=== PATIENT | female | born 1990 | race Hispanic/Latino ===

== ENCOUNTER 2020-01-05 12:41 | Inpatient (IN) | payer OTHER ==
[~2020-01-05] VITALS: Ht 160 cm; Wt 99.8 kg
[2020-01-05] MEDS: LACTATED RINGERS 1000ML 1,000 ML IV PRN ×2 (13:30→16:23)
[2020-01-05 13:53] VITALS: BP 120/69
[2020-01-05 13:54] LABS: APPEARANCE,URINE CLOUDY (CLEAR); BILIRUBIN,URINE NEGATIVE (NEGATIVE); COLOR,URINE YELLOW (YELLOW); GLUCOSE, URINE (UA) NEGATIVE (NEGATIVE); KETONES,URINE NEGATIVE (NEGATIVE); LEUKOCYTE ESTERASE ,URINE SMALL (NEGATIVE); NITRATE,URINE NEGATIVE (NEGATIVE); OCCULT BLOOD,URINE SMALL (NEGATIVE); PROTEIN,URINE TRACE mg/dL (NEGATIVE); UROBILINOGEN,URINE 0.2 mg/dL (0.2-1.0)
[2020-01-05] MEDS: OXYTOCIN-LR 20 UNITS/1000 ML 1,000 ML IV SCH ×2 (14:00→22:54)
[2020-01-05] MEDS ORDERED: ROPIVACAINE 0.2% 100ML VIAL 100 ML EP SCH (14:00)
[2020-01-05] MEDS ORDERED: NALOXONE HCL 0.4 MG/1 ML ML IV PRN (14:00)
[2020-01-05] MEDS ORDERED: EPHEDRINE SULFATE 50 MG/ML AMPULE IVP PRN (14:00)
[2020-01-05] MEDS ORDERED: MEPERIDINE-PF 50 MG/ML SYG IVP PRN (14:00)
[2020-01-05] MEDS ORDERED: LACTATED RINGERS 500 ML 500 ML IV PRN (14:00)
[2020-01-05] MEDS ORDERED: PROMETHAZINE HCL 25 MG/ML 1ML AMPULE IM PRN (14:00)
[2020-01-05 14:17] LABS: HEMATOCRIT 34.7 % (36-48); MEAN CORPUSCULAR HEMOGLOBIN 29.5 pg (27.0-33.0); MEAN CORPUSCULAR HGB CONC 33.7 g/dL (32.0-36.0); MEAN CORPUSCULAR VOLUME 87.4 fL (79-99); RED BLOOD CELL COUNT(AUTO) 3.97 MIL/uL (4.00-5.50); WHITE BLOOD COUNT (AUTO) 13.1 K/uL (4.8-10.8)
[2020-01-05 14:34] LABS: BACTERIA,URINE Moderate /HPF (None Seen); RBC,URINE 26-50 /HPF (0-1); SQUAMOUS EPITHELIAL CELL,UR Few /HPF (0-2)
[2020-01-05] MEDS ORDERED: LIDOCAINE HCL 1% 20 ML VIAL ONE (19:14)
[2020-01-05] MEDS ORDERED: ACETAMINOPHEN-CODEINE 300/30MG TAB PO PRN (20:30)
[2020-01-05] MEDS ORDERED: DIPH,PERTUSS(ACELL),TET VAC/PF 0.5 ML VIAL IM PRN (20:30)
[2020-01-05] MEDS ORDERED: MEASLES/MUMPS/RUBELLA VACCINE, LIVE 0.5 ML/VIAL SQ PRN (20:30)
[2020-01-05] MEDS ORDERED: WITCH HAZEL 1 PAD TP PRN (20:30)
[2020-01-05] MEDS ORDERED: OXYTOCIN-LR 20 UNITS/1000 ML 1,000 ML IV SCH (20:30)
[2020-01-05] MEDS ORDERED: ACETAMINOPHEN 325 MG TAB PO PRN (20:30)
[2020-01-05] MEDS ORDERED: BENZOCAINE/LANOLIN/ALOE VERA 60 ML AEROSOL TP PRN (20:30)
[2020-01-05] MEDS ORDERED: LANOLIN 30GM OINTMENT TP PRN (20:30)
[2020-01-05] MEDS: DOCUSATE SODIUM 100 MG CAP PO SCH (21:52)
[2020-01-05] MEDS: IBUPROFEN 600 MG TABLET PO PRN (21:53)
[2020-01-06] VITALS (7 sets, daily range): BP systolic 116–132; BP diastolic 56–81
--- NOTE | 2020-01-06 03:40 | NUR ---
assisted the pt. to go up to the bathroom to void. Pt. voided 300 cc of clear urine with small lochia rubra. Selin care done. Selin pad applied. Pt. is comfortable at this time.
--- NOTE | 2020-01-06 06:35 | NUR ---
blood drawn for CBC as ordered. PT. tolerated the procedure well.
--- NOTE | 2020-01-06 06:40 | NUR ---
assisted the pt. to go up to the bathroom but the pt. did not void. Selin care done. Dermoplast spray and tucks applied.
[2020-01-06 06:56] LABS: HEMATOCRIT 31.6 % (36-48); MEAN CORPUSCULAR HEMOGLOBIN 29.5 pg (27.0-33.0); MEAN CORPUSCULAR HGB CONC 33.9 g/dL (32.0-36.0); MEAN CORPUSCULAR VOLUME 87.1 fL (79-99); RED BLOOD CELL COUNT(AUTO) 3.63 MIL/uL (4.00-5.50)
--- NOTE | 2020-01-06 07:10 | NUR ---
report given to Evelia Plunkett; COLD PRESS OPERATOR.
[2020-01-06] MEDS: DOCUSATE SODIUM 100 MG CAP PO SCH ×2 (09:46→20:45)
[2020-01-06] MEDS: IBUPROFEN 600 MG TABLET PO PRN ×2 (09:47→16:39)
--- NOTE | 2020-01-06 16:20 | NUR ---
RHOGAM GIVEN IM TO LEFT DELTOID REQUESTED BY PATIENT. NO BLOOD ON ASPIRATION, PATIENT TOLERATED INJECTION WELL.
[2020-01-06 18:09] LABS: HEPATITIS Bs ANTIGEN SCREEN P Negative (Negative)
[2020-01-06] MEDS ORDERED: PREN-202 PO (22:11)
[2020-01-07 03:43] VITALS: BP 126/75
[2020-01-07] MEDS: IBUPROFEN 600 MG TABLET PO PRN (04:47)
[2020-01-07 07:36] VITALS: BP 117/82
[2020-01-07] MEDS: DOCUSATE SODIUM 100 MG CAP PO SCH (09:10)
--- NOTE | 2020-01-07 11:05 | NUR ---
DISCHARGE INSTRUCTIONS READ AND EXPLAINED TO PATIENT.RX FOR IBUPROFEN 800MG AND COLACE 100MG HANDED TO PATIENT. QUESTIONS INVITED AND ANSWERED. PATIENT VOICED UNDERSTANDING ON ALL INSTRUCTIONS.
[2020-01-07 11:25] VITALS: BP 120/81
--- NOTE | 2020-01-07 12:10 | NUR ---
PATIENT LEFT UNIT VIA WHEELCHAIR WITH BABY IN ARMS. PERSONAL VEHICLE USED FOR TRANSPORTATION ACCOMPANIED BY SIGNIFICANT OTHER. BABY SECURE IN CARSEAT. NO COMPLAINTS OR CONCERNS ADDRESSED FROM PATIENT ON DISCHARGE.
== END 2020-01-07 12:10 | disposition home or self-care (01) | DRG 806 ==
LOC: EDH 12:41 → OBSVTOIN 12:42 → UNDOADMOB 12:42 → LDH 12:42 → WSH 01-06 00:30
PROVIDERS: ADMIT Obstetrics & Gynecology; ATTEND Obstetrics & Gynecology
PROC: 10E0XZZ Delivery of Products of Conception, External Approach (ICD-10-PCS; principal; 2020-01-05)
PROC: 0UQGXZZ Repair Vagina, External Approach (ICD-10-PCS; 2020-01-05)
PROC: 3E0234Z Introduction of Serum, Toxoid and Vaccine into Muscle, Percutaneous Approach (ICD-10-PCS; 2020-01-05)
PROC: 3E0134Z Introduction of Serum, Toxoid and Vaccine into Subcutaneous Tissue, Percutaneous Approach (ICD-10-PCS; 2020-01-05)
PROC: 3E0334Z Introduction of Serum, Toxoid and Vaccine into Peripheral Vein, Percutaneous Approach (ICD-10-PCS; 2020-01-05)
DX: O69.81X0 Labor and delivery complicated by cord around neck, without compression, not applicable or unspecified (principal); O71.4 Obstetric high vaginal laceration alone; Z37.0 Single live birth; O99.214 Obesity complicating childbirth; E66.9 Obesity, unspecified; Z3A.39 39 weeks gestation of pregnancy; Z23 Encounter for immunization; Z67.11 Type A blood, Rh negative
CPT/HCPCS: 36415; 81001; 83033; 85027; 86592; 86850; 86900; 86901; 87088; 87340; G0378; J2175; J2550; J2590; J2791; J7120